=== PATIENT | female | born 1935 | race Caucasian/White ===

== ENCOUNTER 2016-12-01 05:44 | Observation (INO) | payer OTHER, BC ==
[~2016-12-01] VITALS: Ht 161.3 cm; Wt 66.5 kg
[~2016-12-01 05:44] MED LIST: COREG6.25 M1 PO; FUROSEMIDE20 MG PO; SYNTHROID100 MCG PO; SYNTHROID50 MCG PO
[2016-12-01 06:16] LABS: HEMATOCRIT 39.5 % (36.0-46.0); MCH 30.3 PG (29.0-34.0); MCHC 33.2 G/DL (30.0-36.0); MCV 91.4 FL (83-99); PLATELET COUNT 277 K/uL (156-360); RBC DIS.WIDTH-CV 13.9 % (11.8-14.6); RED BLOOD COUNT 4.32 M/uL (3.80-5.20); WHITE BLOOD COUNT 6.1 K/uL (4.1-10.2)
[2016-12-01 06:28] LABS: CHLORIDE 107 mEq/L (99-109); SODIUM 140 mEq/L (136-147)
[2016-12-01 06:29] LABS: GLUCOSE 95 mg/dL (70-99)
[2016-12-01 06:31] LABS: ANION GAP 8 MEQ/L (2-14)
[2016-12-01 06:33] LABS: GFR ESTIMATE (CALCULATED) > 59 mL/min/
[2016-12-01 06:34] LABS: UREA NITROGEN (BUN) 16 mg/dL (9-23)
[2016-12-01 06:38] LABS: TROP-I INTERPRETATION NEGATIVE; TROPONIN-I 0.02 ng/mL (0.0-0.30)
[2016-12-01 09:04] LABS: D-DIMER ELISA 0.69 mg/L FEU (< 0.57)
[2016-12-01] MEDS ORDERED: LEVO-T50 MCG PO (09:14)
[2016-12-01 12:28] VITALS: BP 201/91
[2016-12-01 12:35] LABS: TROP-I INTERPRETATION NEGATIVE; TROPONIN-I 0.03 ng/mL (0.0-0.30)
[2016-12-01 16:46] VITALS: BP 189/79
[2016-12-01 19:26] LABS: TROP-I INTERPRETATION NEGATIVE; TROPONIN-I 0.02 ng/mL (0.0-0.30)
[2016-12-01 19:51] VITALS: BP 123/58
[2016-12-02 00:04] VITALS: BP 136/66
[2016-12-02 00:48] LABS: TROP-I INTERPRETATION NEGATIVE; TROPONIN-I 0.02 ng/mL (0.0-0.30)
[2016-12-02 04:11] VITALS: BP 155/70
[2016-12-02 07:21] VITALS: BP 145/66
[2016-12-02] MEDS ORDERED: COREG6.25 M1 PO (11:03)
== END 2016-12-02 11:01 | disposition home or self-care (01) ==
LOC: EME 05:44 → 5WEST 08:26 → EDOF 08:26 → 5WEST 12:16
PROVIDERS: Emergency Medicine; Hospitalist
DX: R07.89 Other chest pain (principal); M25.512 Pain in left shoulder; R00.2 Palpitations; M54.9 Dorsalgia, unspecified; I25.10 Atherosclerotic heart disease of native coronary artery without angina pectoris; I25.82 Chronic total occlusion of coronary artery; E03.9 Hypothyroidism, unspecified; E78.5 Hyperlipidemia, unspecified; I10 Essential (primary) hypertension; Z87.891 Personal history of nicotine dependence; Z88.1 Allergy status to other antibiotic agents; Z88.5 Allergy status to narcotic agent; Z88.8 Allergy status to other drugs, medicaments and biological substances
CPT/HCPCS: 71010; 71275; 80048; 84484; 85027; 85379; 93005; 99281; 99285; G0378

== ENCOUNTER 2016-12-08 00:17 | Observation (INO) | payer OTHER, BC ==
[~2016-12-08] VITALS: Ht 162.6 cm; Wt 73.8 kg
[~2016-12-08 00:17] MED LIST changes: +LEVO-T50 MCG PO
[2016-12-08 01:06] LABS: HEMATOCRIT 37.2 % (36.0-46.0); MCH 30.4 PG (29.0-34.0); MCHC 33.1 G/DL (30.0-36.0); MCV 91.9 FL (83-99); MEAN PLAT.VOLUME 10.1 uM^3 (9.5-12.4); PLATELET COUNT 252 K/uL (156-360); RBC DIS.WIDTH-CV 13.9 % (11.8-14.6); RED BLOOD COUNT 4.05 M/uL (3.80-5.20); WHITE BLOOD COUNT 7.8 K/uL (4.1-10.2)
[2016-12-08 01:17] LABS: CHLORIDE 108 mEq/L (99-109); POTASSIUM 4.4 mEq/L (3.7-5.4); SODIUM 139 mEq/L (136-147)
[2016-12-08 01:19] LABS: GLUCOSE 94 mg/dL (70-99)
[2016-12-08 01:21] LABS: ANION GAP 9 MEQ/L (2-14); TOTAL BILIRUBIN 0.2 mg/dL (0.0-1.0)
[2016-12-08 01:23] LABS: ALKALINE PHOSPHATASE 93 IU/L (3-129); GFR ESTIMATE (CALCULATED) > 59 mL/min/
[2016-12-08 01:24] LABS: UREA NITROGEN (BUN) 20 mg/dL (9-23)
[2016-12-08 01:25] LABS: DIRECT BILIRUBIN 0.1 mg/dL (0.0-0.3)
[2016-12-08 01:26] LABS: LIPASE 53 U/L (1.0-51.0); TROP-I INTERPRETATION NEGATIVE; TROPONIN-I 0.02 ng/mL (0.0-0.30)
[2016-12-08 02:34] LABS: ADD MIUA? YES; BILIRUBIN NEGATIVE; BLOOD NEGATIVE; COLOR YELLOW ((YELLOW)); GLUCOSE (STRIP) NEGATIVE; KETONES NEGATIVE; LEUKOCYTES MODERATE; NITRITE NEGATIVE; PROTEIN (STRIP) NEGATIVE; SPECIFIC GRAVITY 1.018 (1.000-1.030); UROBILINOGEN 0.2 MG/DL (0.2-1.0)
[2016-12-08 02:40] LABS: BACTERIA NONE SEEN /HPF; EPITHELIAL CELLS RARE /HPF; MUCUS TRACE /LPF; RED BLOOD CELLS 0-5 /HPF (0-5); UCUL ADDED? NO; WHITE BLOOD CELLS 15-20 /HPF (0-5)
[2016-12-08 04:35] VITALS: BP 159/65
[2016-12-08 08:45] VITALS: BP 121/53
[2016-12-08] MEDS ORDERED: ASPIRIN81 M2 PO (10:37)
[2016-12-08] MEDS ORDERED: COREG6.25 M1 PO (10:39)
== END 2016-12-08 11:50 | disposition home or self-care (01) ==
LOC: EME → EDSEX 00:17 → EDBD 00:17 → EDOF 03:09 → 5WEST 04:14
PROVIDERS: Emergency Medicine
DX: R07.9 Chest pain, unspecified (principal); I16.0 Hypertensive urgency; I10 Essential (primary) hypertension; I25.10 Atherosclerotic heart disease of native coronary artery without angina pectoris; I25.82 Chronic total occlusion of coronary artery; Z91.128 Patient's intentional underdosing of medication regimen for other reason; T46.5X6A Underdosing of other antihypertensive drugs, initial encounter; T39.016A Underdosing of aspirin, initial encounter; M54.6 Pain in thoracic spine; M25.512 Pain in left shoulder; E03.9 Hypothyroidism, unspecified; I69.318 Other symptoms and signs involving cognitive functions following cerebral infarction; H53.8 Other visual disturbances; Z87.891 Personal history of nicotine dependence
CPT/HCPCS: 71020; 80048; 80076; 81003; 83690; 83880; 84484; 85027; 87086; 93005; 99281; 99285; G0378

== ENCOUNTER 2016-12-15 19:20 | Emergency (ER) | payer OTHER, BC ==
[~2016-12-15] VITALS: Ht 162.6 cm; Wt 69.0 kg
[~2016-12-15 19:20] MED LIST changes: +ASPIRIN81 M2 PO
[2016-12-15 20:00] LABS: HEMATOCRIT 37.3 % (36.0-46.0); MCH 30.4 PG (29.0-34.0); MCHC 33.2 G/DL (30.0-36.0); MCV 91.4 FL (83-99); MEAN PLAT.VOLUME 10.1 uM^3 (9.5-12.4); PLATELET COUNT 260 K/uL (156-360); RBC DIS.WIDTH-CV 13.4 % (11.8-14.6); RBC DIS.WIDTH-SD 43.7 % (39-53); RED BLOOD COUNT 4.08 M/uL (3.80-5.20); WHITE BLOOD COUNT 5.8 K/uL (4.1-10.2)
[2016-12-15 20:08] LABS: CHLORIDE 103 mEq/L (99-109); POTASSIUM 3.9 mEq/L (3.7-5.4); SODIUM 135 mEq/L (136-147)
[2016-12-15 20:10] LABS: GLUCOSE 109 mg/dL (70-99)
[2016-12-15 20:11] LABS: ANION GAP 10 MEQ/L (2-14)
[2016-12-15 20:14] LABS: GFR ESTIMATE (CALCULATED) > 59 mL/min/; UREA NITROGEN (BUN) 15 mg/dL (9-23)
[2016-12-15 20:22] LABS: TROP-I INTERPRETATION NEGATIVE; TROPONIN-I 0.02 ng/mL (0.0-0.30)
[2016-12-16 00:30] VITALS: BP 185/89
== END 2016-12-15 22:59 | disposition home or self-care (01) ==
LOC: EME → EDBD 19:20 → EME 19:20
DX: I10 Essential (primary) hypertension (principal); R51 Headache; R42 Dizziness and giddiness; Z87.891 Personal history of nicotine dependence
CPT/HCPCS: 70450; 71020; 80048; 84484; 85027; 93005; 99281; 99284

== ENCOUNTER 2017-03-09 05:36 | Observation (INO) | payer OTHER, BC ==
[~2017-03-09] VITALS: Ht 162.6 cm; Wt 70.2 kg
[2017-03-09 06:23] LABS: HEMATOCRIT 40.4 % (36.0-46.0); MCH 31.6 PG (29.0-34.0); MCHC 33.7 G/DL (30.0-36.0); MCV 93.7 FL (83-99); RBC DIS.WIDTH-CV 13.3 % (11.8-14.6); RED BLOOD COUNT 4.31 M/uL (3.80-5.20); WHITE BLOOD COUNT 5.1 K/uL (4.1-10.2)
[2017-03-09 06:31] LABS: INTER. NORMALIZED RATIO 1.1; PROTHROMBIN TIME 10.7 (9.2-11.2); PTT 27.4 (25-32)
[2017-03-09 06:32] LABS: CHLORIDE 105 mEq/L (99-109); POTASSIUM 4.2 mEq/L (3.7-5.4); SODIUM 135 mEq/L (136-147)
[2017-03-09 06:34] LABS: GLUCOSE 94 mg/dL (70-99)
[2017-03-09 06:36] LABS: ANION GAP 11 MEQ/L (2-14); TOTAL BILIRUBIN 0.4 mg/dL (0.0-1.0)
[2017-03-09 06:38] LABS: ALKALINE PHOSPHATASE 81 IU/L (3-129); GFR ESTIMATE (CALCULATED) > 59 mL/min/
[2017-03-09 06:39] LABS: UREA NITROGEN (BUN) 15 mg/dL (9-23)
[2017-03-09 06:41] LABS: LIPASE 43 U/L (1.0-51.0)
[2017-03-09 06:44] LABS: TROP-I INTERPRETATION NEGATIVE; TROPONIN-I 0.05 ng/mL (0.0-0.30)
[2017-03-09 07:31] LABS: MEAN PLAT.VOLUME 10.1 uM^3 (9.5-12.4); PLAT.SUFFICIENCY ADEQUATE; PLATELET COUNT 251 K/uL (156-360)
[2017-03-09] MEDS ORDERED: CARVEDILOL6.25 MG PO (08:41)
[2017-03-09] MEDS ORDERED: ASPIRIN81 M2 PO (08:41)
[2017-03-09] MEDS ORDERED: NITROGLYCERIN0.4 MG SL (08:42)
[2017-03-09 09:31] VITALS: BP 124/59
[2017-03-09 11:31] VITALS: BP 123/61
[2017-03-09 13:52] LABS: TROP-I INTERPRETATION NEGATIVE; TROPONIN-I 0.09 ng/mL (0.0-0.30)
[2017-03-09 15:27] VITALS: BP 128/58
[2017-03-09 18:48] VITALS: BP 145/65
[2017-03-09 22:47] LABS: TROP-I INTERPRETATION NEGATIVE; TROPONIN-I 0.08 ng/mL (0.0-0.30)
[2017-03-10 00:45] VITALS: BP 173/73
[2017-03-10 03:52] VITALS: BP 122/58
[2017-03-10 07:41] VITALS: BP 148/67
[2017-03-10] MEDS ORDERED: LOPRESSOR25 MG PO (08:11)
== END 2017-03-10 09:24 | disposition home or self-care (01) ==
LOC: EME 05:36 → 5WEST 07:51 → EDOF 07:51 → 5WEST 09:28
PROVIDERS: Emergency Medicine; Internal Medicine
DX: R07.89 Other chest pain (principal); I16.0 Hypertensive urgency; I10 Essential (primary) hypertension; I25.10 Atherosclerotic heart disease of native coronary artery without angina pectoris; J43.9 Emphysema, unspecified; I25.82 Chronic total occlusion of coronary artery; K21.9 Gastro-esophageal reflux disease without esophagitis; Z91.19 Patient's noncompliance with other medical treatment and regimen; Z86.73 Personal history of transient ischemic attack (TIA), and cerebral infarction without residual deficits; F32.9 Major depressive disorder, single episode, unspecified; F41.9 Anxiety disorder, unspecified; E03.9 Hypothyroidism, unspecified; Z87.891 Personal history of nicotine dependence
CPT/HCPCS: 71010; 80053; 83690; 83880; 84484; 85027; 85610; 85730; 93005; 99281; 99284; G0378

== ENCOUNTER 2017-05-24 09:12 | Emergency (ER) | payer OTHER, BC ==
[~2017-05-24] VITALS: Ht 160 cm; Wt 68.7 kg
[~2017-05-24 09:12] MED LIST changes: +CARVEDILOL6.25 MG PO; +LOPRESSOR25 MG PO; +NITROGLYCERIN0.4 MG SL
[2017-05-24 10:06] LABS: EOSINOPHIL (%) 1.8 % (0-5); EOSINOPHIL COUNT 0.1 K/uL (0-0.3); IMMATURE GRANULOCYTE (%) 0.4 % (0.0-0.7); INSTRUMENT ABS NEUTROPHIL CT 4.5 K/uL; LYMPHOCYTE COUNT 1.5 K/uL (1.0-2.8); MCH 31.1 PG (29.0-34.0); MCHC 33.2 G/DL (30.0-36.0); MCV 93.8 FL (83-99); MEAN PLAT.VOLUME 10.1 uM^3 (9.5-12.4); MONOCYTE (%) 9.1 % (3-12); MONOCYTE COUNT 0.6 K/uL (0-0.8); NEUTROPHIL (%) 66.7 % (45-76); NEUTROPHIL COUNT 4.5 K/uL (1.8-6.4); PLATELET COUNT 293 K/uL (156-360); RBC DIS.WIDTH-CV 13.2 % (11.8-14.6); RBC DIS.WIDTH-SD 45.4 % (39-53); RED BLOOD COUNT 4.37 M/uL (3.80-5.20); WHITE BLOOD COUNT 6.8 K/uL (4.1-10.2)
[2017-05-24 10:11] LABS: INTER. NORMALIZED RATIO 1.1; PROTHROMBIN TIME 11.7 SEC (10.2-12.9)
[2017-05-24 10:14] LABS: PTT 30.1 SEC (25-37)
[2017-05-24 10:24] LABS: CHLORIDE 105 mEq/L (99-109); POTASSIUM 4.4 mEq/L (3.7-5.4); SODIUM 138 mEq/L (136-147)
[2017-05-24 10:25] LABS: GLUCOSE 83 mg/dL (70-99)
[2017-05-24 10:26] LABS: TROP-I INTERPRETATION NEGATIVE; TROPONIN-I 0.02 ng/mL (0.0-0.30)
[2017-05-24 10:27] LABS: ANION GAP 9 MEQ/L (2-14)
[2017-05-24 10:29] LABS: GFR ESTIMATE (CALCULATED) > 59 mL/min/
[2017-05-24 10:30] LABS: UREA NITROGEN (BUN) 14 mg/dL (9-23)
[2017-05-24 12:00] VITALS: BP 130/65
== END 2017-05-24 12:37 | disposition left against medical advice (07) ==
LOC: EME 09:12
PROVIDERS: Emergency Medicine
DX: R07.9 Chest pain, unspecified (principal); Z53.20 Procedure and treatment not carried out because of patient's decision for unspecified reasons; I10 Essential (primary) hypertension; K21.9 Gastro-esophageal reflux disease without esophagitis; E03.9 Hypothyroidism, unspecified; Z87.891 Personal history of nicotine dependence; Z79.82 Long term (current) use of aspirin
CPT/HCPCS: 71010; 80048; 84484; 85025; 85610; 85730; 93005; 99281; 99284

== ENCOUNTER 2017-05-31 10:12 | Emergency (ER) | payer OTHER, BC ==
[~2017-05-31] VITALS: Ht 160 cm; Wt 67.0 kg
[2017-05-31 11:26] VITALS: BP 187/79
== END 2017-05-31 11:30 | disposition home or self-care (01) ==
LOC: EME 10:12
DX: G62.9 Polyneuropathy, unspecified (principal); E03.9 Hypothyroidism, unspecified; I10 Essential (primary) hypertension; Z79.82 Long term (current) use of aspirin; Z87.891 Personal history of nicotine dependence
CPT/HCPCS: 99281; 99283

== ENCOUNTER 2017-06-07 20:53 | Observation (INO) | payer OTHER, BC ==
[~2017-06-07] VITALS: Ht 160 cm; Wt 69.4 kg
[2017-06-07 21:33] LABS: HEMATOCRIT 38.2 % (36.0-46.0); MCH 30.8 PG (29.0-34.0); MCHC 33.2 G/DL (30.0-36.0); MCV 92.5 FL (83-99); MEAN PLAT.VOLUME 10.1 uM^3 (9.5-12.4); PLATELET COUNT 279 K/uL (156-360); RBC DIS.WIDTH-CV 13.1 % (11.8-14.6); RBC DIS.WIDTH-SD 44.2 % (39-53); RED BLOOD COUNT 4.13 M/uL (3.80-5.20); WHITE BLOOD COUNT 7.2 K/uL (4.1-10.2)
[2017-06-07 21:37] LABS: CARBON DIOXIDE (BICARBONATE) 26.2 MEQ/L (20-31)
[2017-06-07 21:43] LABS: CHLORIDE 104 mEq/L (99-109); POTASSIUM 4.4 mEq/L (3.7-5.4); SODIUM 135 mEq/L (136-147)
[2017-06-07 21:45] LABS: GLUCOSE 110 mg/dL (70-99)
[2017-06-07 21:46] LABS: ANION GAP 9 MEQ/L (2-14)
[2017-06-07 21:49] LABS: GFR ESTIMATE (CALCULATED) > 59 mL/min/; UREA NITROGEN (BUN) 16 mg/dL (9-23)
[2017-06-07 21:56] LABS: TROP-I INTERPRETATION NEGATIVE; TROPONIN-I 0.04 ng/mL (0.0-0.30)
[2017-06-07] MEDS ORDERED: CARVEDILOL6.25 MG PO (22:25)
[2017-06-07] MEDS ORDERED: AMOXICILLIN500 MG PO (22:25)
[2017-06-07] MEDS ORDERED: VENTOLIN HFA18 GM IH (22:26)
[2017-06-07 23:37] LABS: MAGNESIUM 1.8 mg/dL (1.3-2.7)
[2017-06-08 00:53] VITALS: BP 139/64
[2017-06-08 05:09] LABS: TROP-I INTERPRETATION INDETERMINATE; TROPONIN-I 0.34 ng/mL (0.0-0.30)
[2017-06-08 06:00] VITALS: BP 127/76
[2017-06-08 07:21] VITALS: BP 138/67
[2017-06-08 08:17] LABS: INTER. NORMALIZED RATIO 1.1; PROTHROMBIN TIME 12.1 SEC (10.2-12.9)
[2017-06-08 08:19] LABS: PTT 30.6 SEC (25-37)
[2017-06-08 11:08] LABS: TROP-I INTERPRETATION INDETERMINATE; TROPONIN-I 0.33 ng/mL (0.0-0.30)
[2017-06-08 11:22] VITALS: BP 127/60
[2017-06-08] MEDS ORDERED: CARVEDILOL3.125 MG PO (13:38)
== END 2017-06-08 14:12 | disposition home or self-care (01) ==
LOC: EME → EDBD 20:53 → EME 20:53 → EDOF 22:28 → ENRESERV 22:32 → 5WEST 06-08 00:29
PROVIDERS: Emergency Medicine; Internal Medicine; Physician Assistant Medical
DX: R07.9 Chest pain, unspecified (principal); R00.2 Palpitations; R06.02 Shortness of breath; I16.0 Hypertensive urgency; I10 Essential (primary) hypertension; I25.10 Atherosclerotic heart disease of native coronary artery without angina pectoris; I25.82 Chronic total occlusion of coronary artery; Z86.73 Personal history of transient ischemic attack (TIA), and cerebral infarction without residual deficits; E78.5 Hyperlipidemia, unspecified; E03.9 Hypothyroidism, unspecified; T46.5X6A Underdosing of other antihypertensive drugs, initial encounter; Z91.128 Patient's intentional underdosing of medication regimen for other reason; Z87.891 Personal history of nicotine dependence
CPT/HCPCS: 71020; 80048; 82803; 83605; 83735; 83880; 84443; 84484; 85027; 85610; 85730; 87040; 93005; 99202; 99281; 99285; G0378

== ENCOUNTER 2017-09-01 12:36 | Emergency (ER) | payer OTHER, BC ==
[~2017-09-01] VITALS: Ht 160 cm; Wt 63.5 kg
[~2017-09-01 12:36] MED LIST changes: +AMOXICILLIN500 MG PO; +CARVEDILOL3.125 MG PO; +VENTOLIN HFA18 GM IH
[2017-09-01 13:12] LABS: BASOPHIL COUNT 0.1 K/uL (0-0.1); EOSINOPHIL (%) 1.1 % (0-5); EOSINOPHIL COUNT 0.1 K/uL (0-0.3); HEMATOCRIT 40.8 % (36.0-46.0); IMMATURE GRANULOCYTE (%) 0.4 % (0.0-0.7); INSTRUMENT ABS NEUTROPHIL CT 4.5 K/uL; LYMPHOCYTE COUNT 1.6 K/uL (1.0-2.8); MCH 30.8 PG (29.0-34.0); MCHC 33.1 G/DL (30.0-36.0); MCV 92.9 FL (83-99); MONOCYTE (%) 11.6 % (3-12); MONOCYTE COUNT 0.8 K/uL (0-0.8); NEUTROPHIL (%) 64.1 % (45-76); NEUTROPHIL COUNT 4.5 K/uL (1.8-6.4); PLATELET COUNT 300 K/uL (156-360); RBC DIS.WIDTH-CV 13.2 % (11.8-14.6); RBC DIS.WIDTH-SD 45.5 % (39-53); RED BLOOD COUNT 4.39 M/uL (3.80-5.20); WHITE BLOOD COUNT 7.1 K/uL (4.1-10.2)
[2017-09-01 13:23] LABS: CHLORIDE 106 mEq/L (99-109); POTASSIUM 4.2 mEq/L (3.7-5.4); SODIUM 138 mEq/L (136-147)
[2017-09-01 13:24] LABS: MAGNESIUM 2.2 mg/dL (1.3-2.7)
[2017-09-01 13:26] LABS: GLUCOSE 108 mg/dL (70-99)
[2017-09-01 13:27] LABS: ANION GAP 8 MEQ/L (2-14)
[2017-09-01 13:28] LABS: TOTAL BILIRUBIN 0.4 mg/dL (0.0-1.0)
[2017-09-01 13:29] LABS: ALKALINE PHOSPHATASE 93 IU/L (3-129)
[2017-09-01 13:30] LABS: GFR ESTIMATE (CALCULATED) > 59 mL/min/
[2017-09-01 13:31] LABS: UREA NITROGEN (BUN) 19 mg/dL (9-23)
[2017-09-01 13:32] LABS: TROP-I INTERPRETATION NEGATIVE; TROPONIN-I 0.02 ng/mL (0.0-0.30)
[2017-09-01 13:33] LABS: CREATINE KINASE 68 IU/L (1-294); TOTAL CK 68 IU/L (1-294)
[2017-09-01 13:38] LABS: CK-MB 1.7 ng/mL (0.0-4.9)
[2017-09-01 16:47] LABS: TROP-I INTERPRETATION NEGATIVE; TROPONIN-I 0.02 ng/mL (0.0-0.30)
[2017-09-01 17:50] VITALS: BP 130/63
== END 2017-09-01 17:52 | disposition home or self-care (01) ==
LOC: EME 12:36
PROVIDERS: Emergency Medicine
DX: R07.9 Chest pain, unspecified (principal); I10 Essential (primary) hypertension; K21.9 Gastro-esophageal reflux disease without esophagitis; E03.9 Hypothyroidism, unspecified; J44.9 Chronic obstructive pulmonary disease, unspecified; F32.9 Major depressive disorder, single episode, unspecified; F41.9 Anxiety disorder, unspecified; Z87.891 Personal history of nicotine dependence; Z86.73 Personal history of transient ischemic attack (TIA), and cerebral infarction without residual deficits; Z88.8 Allergy status to other drugs, medicaments and biological substances
CPT/HCPCS: 71010; 71275; 80053; 82550; 82553; 83735; 84443; 84484; 85025; 93005; 99281; 99285; J2270

== ENCOUNTER 2017-10-15 19:41 | Emergency (ER) | payer OTHER, BC ==
[~2017-10-15] VITALS: Ht 160 cm; Wt 68.0 kg
[2017-10-15 21:30] LABS: HEMATOCRIT 38.1 % (36.0-46.0); HEMOGLOBIN 12.6 G/DL (11.9-15.5); MCH 30.5 PG (29.0-34.0); MCHC 33.1 G/DL (30.0-36.0); MCV 92.3 FL (83-99); PLATELET COUNT 289 K/uL (156-360); RBC DIS.WIDTH-CV 13.3 % (11.8-14.6); RBC DIS.WIDTH-SD 45.3 % (39-53); RED BLOOD COUNT 4.13 M/uL (3.80-5.20); WHITE BLOOD COUNT 7.3 K/uL (4.1-10.2)
[2017-10-15 21:39] LABS: CHLORIDE 99 mEq/L (99-109); POTASSIUM 3.9 mEq/L (3.7-5.4); SODIUM 131 mEq/L (136-147)
[2017-10-15 21:40] LABS: GLUCOSE 99 mg/dL (70-99)
[2017-10-15 21:44] LABS: CREATININE 0.8 mg/dL (0.6-1.3); GFR ESTIMATE (CALCULATED) > 59 mL/min/
[2017-10-15 21:45] LABS: UREA NITROGEN (BUN) 14 mg/dL (9-23)
[2017-10-15 22:21] LABS: APPEARANCE CLEAR ((CLEAR)); BILIRUBIN NEGATIVE; BLOOD NEGATIVE; COLOR STRAW ((YELLOW)); GLUCOSE (STRIP) NEGATIVE; KETONES 5; LEUKOCYTES SMALL; NITRITE NEGATIVE; PROTEIN (STRIP) NEGATIVE; SPECIFIC GRAVITY 1.009 (1.000-1.030); UROBILINOGEN 0.2 MG/DL (0.2-1.0)
[2017-10-15 22:33] LABS: BACTERIA NONE SEEN /HPF; EPITHELIAL CELLS RARE /HPF; MUCUS TRACE /LPF; RED BLOOD CELLS 0-5 /HPF (0-5)
[2017-10-15] MEDS ORDERED: VALIUM2 MG PO (23:16)
[2017-10-15] MEDS ORDERED: MUCINEX1200 MG PO (23:16)
[2017-10-16 01:09] VITALS: BP 173/74
== END 2017-10-16 01:12 | disposition home or self-care (01) ==
LOC: EME 19:41
PROVIDERS: Physician Assistant
DX: H69.80 Other specified disorders of Eustachian tube, unspecified ear (principal); E86.0 Dehydration; H81.399 Other peripheral vertigo, unspecified ear; K21.9 Gastro-esophageal reflux disease without esophagitis; J44.9 Chronic obstructive pulmonary disease, unspecified; I25.10 Atherosclerotic heart disease of native coronary artery without angina pectoris; I10 Essential (primary) hypertension; E03.9 Hypothyroidism, unspecified; F41.9 Anxiety disorder, unspecified; F32.9 Major depressive disorder, single episode, unspecified; Z79.82 Long term (current) use of aspirin; Z87.891 Personal history of nicotine dependence; Z86.73 Personal history of transient ischemic attack (TIA), and cerebral infarction without residual deficits; Z85.9 Personal history of malignant neoplasm, unspecified; Z88.5 Allergy status to narcotic agent; Z88.8 Allergy status to other drugs, medicaments and biological substances
CPT/HCPCS: 71020; 80048; 81003; 85027; 87086; 93005; 99281; 99284

== ENCOUNTER 2018-02-22 06:25 | Emergency (ER) | payer OTHER, BC ==
[~2018-02-22] VITALS: Ht 160 cm; Wt 69.7 kg
[~2018-02-22 06:25] MED LIST changes: +MUCINEX1200 MG PO; +VALIUM2 MG PO
[2018-02-22 06:57] LABS: BASOPHIL (%) 1.2 % (0-1); BASOPHIL COUNT 0.1 K/uL (0-0.1); EOSINOPHIL (%) 2.1 % (0-5); EOSINOPHIL COUNT 0.1 K/uL (0-0.3); HEMATOCRIT 37.4 % (36.0-46.0); HEMOGLOBIN 12.6 G/DL (11.9-15.5); IMMATURE GRANULOCYTE (%) 0.4 % (0.0-0.7); LYMPHOCYTE (%) 22.5 % (15-42); LYMPHOCYTE COUNT 1.2 K/uL (1.0-2.8); MCH 31.4 PG (29.0-34.0); MCHC 33.7 G/DL (30.0-36.0); MCV 93.3 FL (83-99); MONOCYTE (%) 12.7 % (3-12); MONOCYTE COUNT 0.7 K/uL (0-0.8); NEUTROPHIL (%) 61.1 % (45-76); NEUTROPHIL COUNT 3.2 K/uL (1.8-6.4); PLATELET COUNT 294 K/uL (156-360); RBC DIS.WIDTH-CV 13.2 % (11.8-14.6); RBC DIS.WIDTH-SD 45.4 % (39-53); RED BLOOD COUNT 4.01 M/uL (3.80-5.20); WHITE BLOOD COUNT 5.2 K/uL (4.1-10.2)
[2018-02-22 07:11] LABS: INTER. NORMALIZED RATIO 1.1
[2018-02-22 07:13] LABS: PTT 30.1 SEC (25-37)
[2018-02-22 08:57] LABS: APPEARANCE CLEAR ((CLEAR)); BILIRUBIN NEGATIVE; BLOOD NEGATIVE; COLOR YELLOW ((YELLOW)); GLUCOSE (STRIP) NEGATIVE; KETONES NEGATIVE; LEUKOCYTES TRACE; NITRITE NEGATIVE; PROTEIN (STRIP) NEGATIVE; SPECIFIC GRAVITY 1.011 (1.000-1.030); UROBILINOGEN 0.2 MG/DL (0.2-1.0)
[2018-02-22 09:05] LABS: BACTERIA RARE /HPF; EPITHELIAL CELLS NONE SEEN /HPF; MUCUS NONE SEEN /LPF; RED BLOOD CELLS 0-5 /HPF (0-5); UCUL ADDED? NO; WHITE BLOOD CELLS 0-5 /HPF (0-5)
[2018-02-22 10:38] LABS: TROP-I INTERPRETATION NEGATIVE; TROPONIN-I 0.03 ng/mL (0.0-0.30)
[2018-02-22 10:55] LABS: ALBUMIN 3.8 G/DL (3.2-4.8); ALKALINE PHOSPHATASE 71 IU/L (3-129); ALT (GPT) 14 IU/L (3-49); AST (GOT) 22 IU/L (2-34); CHLORIDE 103 MEQ/L (99-109); CREATININE 0.6 MG/DL (0.6-1.3); GFR ESTIMATE (CALCULATED) > 59 mL/min/; GLUCOSE 90 mg/dL (70-99); POTASSIUM 4.2 MEQ/L (3.7-5.4); SODIUM 134 MEQ/L (136-147); TOTAL BILIRUBIN 0.5 MG/DL (0.0-1.0); TOTAL PROTEIN 6.7 G/DL (6.4-8.3); UREA NITROGEN (BUN) 12 mg/dL (9-23)
[2018-02-22 12:55] VITALS: BP 123/56
== END 2018-02-22 12:57 | disposition home or self-care (01) ==
LOC: EME 06:25
PROVIDERS: Emergency Medicine
DX: R51 Headache (principal); R10.10 Upper abdominal pain, unspecified; I45.10 Unspecified right bundle-branch block; I10 Essential (primary) hypertension; I48.91 Unspecified atrial fibrillation; F32.9 Major depressive disorder, single episode, unspecified; I25.10 Atherosclerotic heart disease of native coronary artery without angina pectoris; K21.9 Gastro-esophageal reflux disease without esophagitis; F41.9 Anxiety disorder, unspecified; Z86.73 Personal history of transient ischemic attack (TIA), and cerebral infarction without residual deficits; J44.9 Chronic obstructive pulmonary disease, unspecified; E03.9 Hypothyroidism, unspecified; Z88.1 Allergy status to other antibiotic agents; Z88.8 Allergy status to other drugs, medicaments and biological substances; Z87.891 Personal history of nicotine dependence; Z79.82 Long term (current) use of aspirin
CPT/HCPCS: 70450; 71045; 80053; 81003; 84484; 85025; 85610; 85730; 93005; 99281; 99284

== ENCOUNTER 2018-04-18 01:06 | Observation (INO) | payer OTHER, BC ==
[~2018-04-18] VITALS: Ht 160 cm; Wt 68.5 kg
[2018-04-18 01:29] LABS: ALBUMIN 4.1 g/dL (3.2-4.8)
[2018-04-18 01:30] LABS: CHLORIDE 101 mEq/L (99-109); POTASSIUM 4.1 mEq/L (3.7-5.4); SODIUM 135 mEq/L (136-147)
[2018-04-18 01:32] LABS: TOTAL PROTEIN 7.2 g/dL (6.4-8.3)
[2018-04-18 01:34] LABS: TOTAL BILIRUBIN 0.2 mg/dL (0.0-1.0)
[2018-04-18 01:35] LABS: ALKALINE PHOSPHATASE 105 IU/L (3-129)
[2018-04-18 01:36] LABS: CREATININE 0.8 mg/dL (0.6-1.3); GFR ESTIMATE (CALCULATED) > 59 mL/min/
[2018-04-18 01:37] LABS: AST (GOT) 24 IU/L (2-34); UREA NITROGEN (BUN) 11 mg/dL (9-23)
[2018-04-18 01:38] LABS: ALT (GPT) 18 IU/L (3-49)
[2018-04-18 01:39] LABS: LIPASE 48 U/L (1.0-51.0)
[2018-04-18 01:42] LABS: PTT 30.2 SEC (25-37)
[2018-04-18 01:44] LABS: TROP-I INTERPRETATION NEGATIVE; TROPONIN-I 0.02 ng/mL (0.0-0.30)
[2018-04-18 02:00] LABS: GLUCOSE 99 mg/dL (70-99)
[2018-04-18 03:20] LABS: HEMATOCRIT 37.4 % (36.0-46.0); HEMOGLOBIN 12.8 G/DL (11.9-15.5); MCH 31.8 PG (29.0-34.0); MCHC 34.2 G/DL (30.0-36.0); PLATELET COUNT 268 K/uL (156-360); RBC DIS.WIDTH-SD 44.4 % (39-53); RED BLOOD COUNT 4.02 M/uL (3.80-5.20); WHITE BLOOD COUNT 6.8 K/uL (4.1-10.2)
[2018-04-18 05:44] VITALS: BP 181/82
[2018-04-18 07:23] LABS: TROP-I INTERPRETATION NEGATIVE; TROPONIN-I 0.01 ng/mL (0.0-0.30)
[2018-04-18] MEDS ORDERED: CLARITIN,ALAVAR10 MG PO (11:17)
[2018-04-18] MEDS ORDERED: COREG6.25 M1 PO (11:18)
[2018-04-18 12:24] VITALS: BP 133/64
[2018-04-18 12:33] LABS: TROP-I INTERPRETATION NEGATIVE; TROPONIN-I 0.02 ng/mL (0.0-0.30)
[2018-04-18] MEDS ORDERED: LISINOPRIL5 MG PO ×2 (13:07→13:24)
[2018-04-18] MEDS ORDERED: LIPITOR40 MG PO (13:07)
== END 2018-04-18 14:05 | disposition home or self-care (01) ==
LOC: EME 01:06 → EDOF 04:09 → ENRESERV 04:14 → 4SOUTH 05:31
PROVIDERS: Emergency Medicine; Nurse Practitioner Adult Health
DX: R07.9 Chest pain, unspecified (principal); I16.0 Hypertensive urgency; I25.10 Atherosclerotic heart disease of native coronary artery without angina pectoris; I25.82 Chronic total occlusion of coronary artery; I10 Essential (primary) hypertension; J43.9 Emphysema, unspecified; Z87.891 Personal history of nicotine dependence; Z86.73 Personal history of transient ischemic attack (TIA), and cerebral infarction without residual deficits; E03.9 Hypothyroidism, unspecified; R11.0 Nausea; R61 Generalized hyperhidrosis; Z79.82 Long term (current) use of aspirin
CPT/HCPCS: 71045; 80053; 83690; 84484; 85027; 85610; 85730; 93005; 99281; 99285; G0378; J3010